=== PATIENT | male | born 1980 | race American Indian/Alaskan Native ===

== ENCOUNTER 2017-06-22 09:17 | Day surgery (SDC) | payer MEDICAID ==
[2017-06-22] MEDS ORDERED: MIDAZOLAM 2 MG/2 ML VIAL ONE (10:52)
[2017-06-22] MEDS ORDERED: fentaNYL 100 MCG/2 ML INJ ONE (10:52)
--- NOTE | 2017-06-22 10:53 | PDGENHP ---
History & Physical Chief Complaint: melena History of Present Illness: melena from NSAID's, nml HB HCt Pertinent Past, Social, Family History: occ alcohol. no fhx cc Relevant Physical Exam: a+ox3. CTA. S1S2, RRR. +BS, soft nt Cardiorespiratory Assessment: class 1 pt
--- NOTE | 2017-06-22 10:54 | PDPROPOC ---
Sedation Plan of Care Sedation Plan of Care: mental status noted, patient educated of risks, benefits , alternatives, patient can tolerate sedation ASA Classification: ASA 1 Planned drugs: fentanyl, midazolam Mallampati Score: Class 1 Mallampati Reference Image: 2 Patient passed 3-3-2 rule?: Yes
--- NOTE | 2017-06-22 11:40 | GIREPORT ---
[facility] Surgical Services - Endoscopy Department Patient Name: Heath Yu Procedure Date: 06/22/2017 10:39 AM Patient Type: Outpatient Attending MD/ ER Physician: Mauricio Khan Procedure: Upper GI endoscopy Indications: Melena Providers: Tristen Rasmussen MD Medicines: Fentanyl 100 micrograms IV, Midazolam 6 mg IV Complications: No immediate complications. Estimated blood loss: Minimal. Description of Procedure: After obtaining informed consent, the endoscope was passed under direct vision. Throughout the procedure, the patient's blood pressure, pulse, and oxygen saturations were monitored continuously. The Endoscope was intro duced through the mouth, and advanced to the second part of duodenum. The [facility] er GI endoscopy was accomplished without difficulty. The patient tolerated th e procedure well. Findings: Esophagitis with no bleeding was found at the gastroesophageal junction. Biopsies were taken wit h a cold forceps for histology. Estimated blood loss was minimal. Multiple dispersed, small non-bleeding erosions were found on the greater curvature of the gastr ic body and in the gastric antrum. There were no stigmata of recent bleeding. Biopsies were taken w ith a cold forceps for histology. Estimated blood loss was minimal. Scattered moderate inflammation characterized by erosions, friability and granularity was found on the greater curvature of the gastric body and in the gastric antrum. Biopsies were taken with a cold forceps for histology. Estimated blood loss was minimal. The examined duodenum was normal. The exam was otherwise without abnormality. Estimated Blood Loss: Estimated blood loss was minimal. Post Op Diagnosis: - Reflux esophagitis. Rule out Cox's esophagus. Biopsied. - Non-bleeding erosive gastropathy. Biopsied. - Gastritis. Biopsied. - Normal examined duodenum. - The examination was otherwise normal. Recommendation: - Await pathology results. - My office will call with the pathology result with 5-7 days. If you have not heard from my off ice by 09-13, do not assume the pathology is normal, please call [phone] to get the pathology r eults. - Use Protonix (pantoprazole) 40 mg PO daily for 8 weeks. Take 30-60 minutes before breakfast. - Patient has a contact number available for emergencies. The signs and symptoms of potential de layed complications were discussed with the patient. Return to normal activities tomorrow. Written discharge instructions were provided to the patient. - Discharge patient to home (ambulatory). - Return to primary care physician as previously scheduled. - Return to GI clinic PRN. - Thank you for allowing me to help in your patient's care. Do not hesitate to call with any questions. Attending Participation: I personally performed the entire procedure. Valery Ramon M.D Tristen Rasmussen MD 06/22/2017 11:40:10 AM Number of Addenda: 0 Note Initiated On: 06/22/2017 10:39 AM Total Procedure Duration Time 0 hours 7 minutes 33 seconds [email or web address]
[2017-06-22 11:41] VITALS: RESP 16; TEMP 98.2
[2017-06-22 12:17] VITALS: BP 123/84; PULSE 53; O2SAT 94
== END 2017-06-22 12:36 | disposition home or self-care (01) ==
LOC: FSGY 09:17
PROVIDERS: ATTEND Internal Medicine Gastroenterology
DX: K21.0 Gastro-esophageal reflux disease with esophagitis (principal); K29.70 Gastritis, unspecified, without bleeding
CPT/HCPCS: J0171; J2250; J3010